=== PATIENT | female | born 1980 | race Caucasian/White ===

== ENCOUNTER 2023-09-27 14:35 | Outpatient (CLI) | payer OTHER, SELFPAY ==
--- NOTE | ~2023-09-27 | XR_ITS ---
EXAM: [id number] DATE: 09/27/2023 14:49 HISTORY: PAIN TO ANTERIOR RIGHT KNEE NO INJURY . COMPARISON: None available. FINDINGS: Normal mineralization. No fracture or dislocation. No lytic or blastic lesion. Mild tricom partmental osteophytosis. No erosion or periosteal change. Soft tissues within normal limits. IMPRESSION: Mild tricompartmental right knee osteoarthritis. Reviewed, dictated and finalized at location K. OPERATOR
== END 2023-09-27 14:36 | disposition home or self-care (01) ==
PROVIDERS: PCP Internal Medicine; Visit Provider Nurse Practitioner
DX: M17.11 Unilateral primary osteoarthritis, right knee (principal)
CPT/HCPCS: 73560